=== PATIENT | female | born 1980 | race Caucasian/White ===

== ENCOUNTER 2018-08-17 10:26 | Observation (INO) ==
--- NOTE | 2018-08-16 20:39 | MH ---
cc: Manuel Vann MD DATE OF ADMISSION: 08/17/2018 ADMITTING DIAGNOSES: Menorrhagia, dysmenorrhea. HISTORY OF PRESENT ILLNESS: The patient is a 38-year-old white female, para 2-0-3-2, has had intermittent vaginal bleeding since 03/2018. Her pelvic ultrasound showed a slightly enlarged uterus. Endometrial biopsy was benign. She has failed to respond to conservative therapy. Due to persistent bleeding and discomfort, she is now admitted for hysterectomy. PAST MEDICAL HISTORY: Previous surgeries: 1. Had lithotripsy for renal stones in 2005. 2. She had a gastric sleeve in 2012. 3. Gastric band in 2008. 4. Cholecystectomy in 2007. 5. She had a in 2013. 6. with tubal in 2015. 7. She had a spontaneous in 2014 that required D and C. 8. Two spontaneous abortions that were early and did not require surgery. MEDICATIONS: 1. Vitamins. 2. Progesterone. ALLERGIES: 1. PERCOCET. 2. TRAMADOL. TRANSFUSIONS: None. SOCIAL HISTORY: A virtual teacher, . Alcohol, tobacco and drugs are none. PHYSICAL EXAMINATION: GENERAL: She is a well-nourished, well-developed, white female. VITAL SIGNS: Stable. HEENT EXAM: Normal. CHEST: Clear. HEART: Regular rate. BREASTS: Symmetrical. ABDOMEN: Benign. PELVIC: Normal external genitalia and BUS. Vagina is normal. Cervix normal. Uterus is upper limits of normal size. Adnexa nonpalpable. ASSESSMENT: As above. PLAN: She is now admitted for laparoscopy, planned LASH procedure, possible CONNER. While in the office, the risks and benefits and complications were explained and accepted. She is aware that she has anemia at this time and may require transfusions pending blood loss at the time of procedure. She would like to proceed. MD BRIGIDA Michaud/rosa , 08:04 PM , 08:10 PM
[2018-08-17] MEDS ORDERED: Metoprolol Tartrate 25 MG Tablet PO ONE (11:15)
[2018-08-17] MEDS ORDERED: Chlorhexidine Gluconate 2% 1 Pack (2 Cloths) TOPICAL ONE (11:15)
[2018-08-17] MEDS ORDERED: Sodium Chlor 0.9% Inj 500 ML IV.CONT ONE (11:15)
[2018-08-17] MEDS ORDERED: ceFAZolin 2 GM Premix Inj 2 GM/50 ML PIGGYBACK IV.SIG ONE (12:00)
[2018-08-17] MEDS ORDERED: Scopalamine 1.5 MG Patch T-DERMAL ONE (12:30)
[2018-08-17] MEDS ORDERED: Sugammadex Inj 200 MG/2 ML Vial IV.PUSH ONE (13:51)
[2018-08-17] MEDS ORDERED: HYDROmorphone PF Inj 1 MG/ML Ampul IV.PUSH PRN (15:25)
[2018-08-17] MEDS ORDERED: Zolpidem Tartrate 5 MG Tablet PO PRN (15:25)
--- NOTE | 2018-08-17 15:51 | MP ---
cc: Manuel Vann MD DATE OF OPERATION: 08/17/2018 PREOPERATIVE DIAGNOSES: 1. Menorrhagia. 2. Dysmenorrhea. POSTOPERATIVE DIAGNOSES: 1. Menorrhagia. 2. Dysmenorrhea. PROCEDURES PERFORMED: Laparoscopy with a LASH bilateral salpingectomy. ANESTHESIA: General, ET. SURGEON: Manuel Vann MD CLIENT SERVICES REPRESENTATIVE: MELIA Braden ESTIMATED BLOOD LOSS: 50 mL. FLUIDS: 1.5 liters crystalloid. OBJECTIVE FINDINGS: Following induction of adequate general endotracheal anesthesia, the patient was prepped and draped supine on the operating table in a sterile fashion, with the bladder being drained by Delatorre catheterization. Due to the panniculus size, the abdomen was opened through a 3 cm curving supraumbilical incision using a knife to cut down through skin to the fascia. The fascia opened transversely. The peritoneum entered with finger dissection and palpated free of adhesions. The GelPort was placed. Laparoscope inserted. A 5 port placed in left lower quadrant area and right lower quadrant. The uterus was about 10-12 weeks' size. The ovaries were normal. Tubes showed interruption. Cul-de-sacs were clear. Liver edge was normal. Working first on the left, the Harmonic scalpel was used to take the left mesosalpinx, left round ligament, left broad ligament, left-sided bladder flap and left uterine vessels and same on the right. Harmonic scalpel was now used to amputate the fundus from the cervix. The pouch inserted and used to extract the uterus and tubes intact through the GelPort. Irrigation was now performed. No bleeding was evident. A low pressure test in the Trendelenburg position revealed no bleeding. Ureters showed good peristalsis. The operative sites were coated with Evicel. The GelPort was now removed and the peritoneum and fascia was sutured in 1 layer from each corner to the midline and tied. Subcutaneous irrigated and closed with 3-0 Vicryl running and the skin with a running 3-0 Monocryl subcuticular. The scope was now reinserted through the lower port site and used to inspect the GelPort site, which had good closure with no entrapment of tissue. The pelvis inspected. There was no bleeding. The scope was now removed. Gas allowed to escape. The small ports were removed and sutured with 3-0 Monocryl subcuticular. Sterile bandage was applied. All counts were correct and the patient was awakened and taken to the recovery room in good condition. MD BRIGIDA Michaud/charito , 03:33 PM , 03:39 PM [facility]OP
[2018-08-17] MEDS ORDERED: *Meperidine Inj 25 MG/ML Vial PERIprocedural Use ONLY ONE (16:08)
[2018-08-17] MEDS ORDERED: fentaNYL Citrate Inj 100 MCG/2 ML Ampul ONE (16:10)
[2018-08-17] MEDS ORDERED: Morphine Inj 4 MG/ML Vial ONE (16:11)
[2018-08-17] MEDS ORDERED: *morphine SULFATE 4 MG/ML PERIprocedure ONLY ONE ×3 (16:16→16:47)
[2018-08-17 16:55] LABS: Hematocrit 38.9 % (35.0-46.0); Hemoglobin 12.8 gm/dL (11.6-15.3); Mean Corpuscular HGB Conc 32.9 % (32.0-36.0); Mean Corpuscular Hemoglobin 27.6 pg (27.0-34.0); Mean Corpuscular Volume 83.8 fL (80.0-100.0); Mean Platelet Volume 8.7 fL (7.0-11.0); Platelet Count 134 th/mm3 (150-450); Red Blood Count 4.64 mil/mm3 (4.00-5.30); Red Cell Distribution Width 15.6 % (11.6-17.2); White Blood Count 7.3 th/mm3 (4.0-11.0)
[2018-08-17] MEDS: Docusate Sodium 100 MG Capsule PO SCH (20:25)
[2018-08-17] MEDS: Ketorolac Inj 30 MG/ML (IVP) Vial IV.PUSH SCH (22:05)
[2018-08-17] MEDS ORDERED: Simethicone 80 MG Chew Tablet PO PRN (22:34)
[2018-08-18] MEDS: Ketorolac Inj 30 MG/ML (IVP) Vial IV.PUSH SCH ×2 (04:57→10:01)
[2018-08-18 05:52] LABS: Baso % (Auto) 0.4 % (0.0-2.0); Eos # (Auto) 0.1 th/mm3 (0.0-0.4); Eos % (Auto) 1.2 % (0.0-4.0); Hematocrit 35.3 % (35.0-46.0); Hemoglobin 11.6 gm/dL (11.6-15.3); Lymph # (Auto) 1.1 th/mm3 (1.0-4.8); Lymph % (Auto) 14.8 % (9.0-44.0); Mean Corpuscular HGB Conc 32.9 % (32.0-36.0); Mean Corpuscular Hemoglobin 27.4 pg (27.0-34.0); Mean Corpuscular Volume 83.3 fL (80.0-100.0); Mean Platelet Volume 8.6 fL (7.0-11.0); Mono # (Auto) 0.4 th/mm3 (0.0-0.9); Mono % (Auto) 5.6 % (0.0-8.0); Neut # (Auto) 5.6 th/mm3 (1.8-7.7); Platelet Count 144 th/mm3 (150-450); Red Blood Count 4.23 mil/mm3 (4.00-5.30); Red Cell Distribution Width 15.7 % (11.6-17.2); White Blood Count 7.1 th/mm3 (4.0-11.0)
[2018-08-18 06:13] LABS: Anion Gap 5 meq/L (5-15); Blood Urea Nitrogen 9 mg/dL (7-18); Calcium 7.9 mg/dL (8.5-10.1); Carbon Dioxide 29.7 meq/L (21.0-32.0); Chloride 107 meq/L (98-107); Glomerular Filtration Rate Greater Than 89 mL/min (>89); Glucose,Random 117 mg/dL (74-106); Sodium 142 meq/L (136-145)
[2018-08-18] MEDS: Docusate Sodium 100 MG Capsule PO SCH (10:02)
[2018-08-18 12:37] VITALS: BP 93/52; PULSE 65; RESP 20; TEMP 97.8; O2SAT 97
== END 2018-08-18 14:35 | disposition home or self-care (01) ==
LOC: HSDI 10:26 → HSDC 10:26 → H1EA 17:15
PROVIDERS: ADMIT Obstetrics & Gynecology; ATTEND Obstetrics & Gynecology
PROC: LAPLASH (ICD-10-PCS; 2018-08-17 13:29)